=== PATIENT | male | born 1965 | race Two or more races ===

== ENCOUNTER → 2022-06-07 06:00 | Outpatient (CLI) | payer OTHER ==
[~2022-06-07] VITALS: Ht 175.3 cm; Wt 63.5 kg
[~2022-06-07 06:00] MED LIST: LOPRESSOR25 MG PO
== END | disposition home or self-care (01) ==
LOC: LAB 06:00 → ADM 09:15 → CIR.AMB 06-09 09:15 → EDSTATUS 06-09 09:15
PROVIDERS: ATTEND Specialist
DX: K40.90 Unilateral inguinal hernia, without obstruction or gangrene, not specified as recurrent (principal); Z11.52 Encounter for screening for COVID-19; I10 Essential (primary) hypertension; D68.8 Other specified coagulation defects

== ENCOUNTER 2022-06-14 07:52 | Outpatient (CLI) | payer OTHER | END 2022-06-14 08:03 | disposition home or self-care (01) | LOC: TOM 07:52 | PROVIDERS: ATTEND Internal Medicine | DX: R22.1 Localized swelling, mass and lump, neck (principal) ==